=== PATIENT | female | born 1940 | race Caucasian/White ===

== ENCOUNTER 2019-09-14 21:05 | Outpatient (CLI) | payer MEDICARE | END 2019-09-14 21:06 | disposition critical access hospital (66) | LOC: EMS 21:05 | PROVIDERS: ATTEND Surgery | DX: R55 Syncope and collapse (principal); R47.81 Slurred speech; R29.810 Facial weakness | CPT/HCPCS: A0425; A0429 ==

== ENCOUNTER 2019-09-14 21:22 | Inpatient (IN) | payer MEDICARE ==
--- NOTE | 2019-09-14 21:24 | ED Physician Documentation ---
PD HPI FOCAL NEURO - Stated complaint Stated Complaint: STROKE - History obtained from History obtained from: EMS - History of Present Illness Timing - onset: How many minutes ago (approximately 30 minutes NUCLEAR MEDICINE PET CT TECHNOLOGIST) Timing - details: Abrupt onset Severity of deficit: Severe Weakness: Face Associated symptoms: Headache Baseline status: positive: Cane Similar symptoms before: Has not had sx before Recently seen: Not recently seen - Additional information Additional information: last known normal was 6:30 PM tonight. Approximately 30 minutes NUC[address]AR MED[address]INE PET [address] TECHNOLOGIST, patient called out to son for help while she was on the toilet. She told her son she felt she was going to pass out. Son noted left facial droop, slurred speech, and patient c/o headache. Patient's baseline is AAOx3, ambulatory with cane. She became increasingly drowsy en route to ED and arrives unconscious, not responsive to stimuli including painful stimuli. Per medic report, patient's medications are lisinopril, lasix, and metoprolol. 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) - Allergies Allergies/Adverse Reactions: Allergies Allergy/AdvReac Type Severity Reaction Status Date / Time No Known Drug Allergies Allergy Verified 09/15/19 01:12 - Living Situation Living Situation: reports: With family Living Arrangement: reports: At home PD ED PE NORMAL - Vitals Vital signs reviewed: Yes - General General: Well developed/nourished - HEENT HEENT: Atraumatic, Moist mucous membranes - Cardiac Cardiac: No murmur - Respiratory Respiratory: No respiratory distress, Other (bilateral course breath sounds) - Abdomen Abdomen: Soft, Non distended - Derm Derm: Normal color - Neuro Eye Opening: None Motor: None Verbal: None GCS Score: 3 PD ED PE EXPANDED - General General: Unresponsive - Cardiac Cardiac: Irregularly irregular - Neuro Neuro: Unresponsive, Dyscongugate gaze (no purposeful gaze; medial deviation of left eye) Results - Vitals Vitals: Vital Signs - 24 hr 09/14/19 09/14/19 09/14/19 21:54 22:00 22:02 Temperature 36.6 C Heart Rate 81 120 H 116 H Respiratory 16 20 18 Rate Blood Pressure 169/114 H 230/133 H 212/142 H O2 Saturation 98 20 L 100 09/14/19 09/14/19 09/14/19 22:12 22:15 22:20 Temperature Heart Rate 87 83 82 Respiratory 16 16 Rate Blood Pressure 235/104 H O2 Saturation 100 100 09/14/19 09/14/19 09/14/19 22:26 22:34 22:37 Temperature Heart Rate 75 73 66 Respiratory 18 16 16 Rate Blood Pressure 115/77 102/62 87/59 L O2 Saturation 10 L 100 100 09/14/19 09/14/19 09/14/19 22:42 22:47 23:00 Temperature Heart Rate 76 68 90 Respiratory 16 Rate Blood Pressure 95/65 95/62 O2 Saturation 100 09/15/19 09/15/19 00:32 01:53 Temperature Heart Rate 71 86 Respiratory 16 11 L Rate Blood Pressure 178/84 H 110/62 O2 Saturation 100 93 Oxygen O2 Source Room air - EKG (time done) No standard instances Rate: Rate (enter#) (102) Rhythm: Atrial fibrillation [place]: Normal Ischemia: Normal ST segments - Labs Labs: Laboratory Tests 09/14/19 09/14/19 09/14/19 21:52 21:52 21:52 WBC 16.3 H RBC 3.93 L Hgb 12.0 Hct 36.9 L MCV 93.9 MCH 30.5 MCHC 32.5 RDW 13.5 Plt Count 238 MPV 11.0 H Neut # (Auto) 10.8 H Lymph # (Auto) 4.3 H [place] # (Auto) 0.9 Eos # (Auto) 0.1 Baso # (Auto) 0.1 Absolute Nucleated RBC 0.00 Nucleated RBC % 0.0 PT 35.1 H INR 3.3 H APTT 33.5 H Sodium 133 L Potassium 3.1 L Chloride 101 Carbon Dioxide 23 Anion Gap 9.0 BUN 12 Creatinine 0.9 Estimated GFR (MDRD) 60 L Glucose 230 H Calcium 8.4 L Total Bilirubin 0.6 AST 19 ALT 10 Alkaline Phosphatase 76 Troponin I High Sens Total Protein 6.1 L Albumin 2.8 L Globulin 3.3 Albumin/Globulin Ratio 0.8 L Lipase 30 TSH Urine Color Urine Clarity Urine pH Ur Specific [place] Urine Protein Urine Glucose (UA) Urine Ketones Urine Occult Blood Urine Nitrite Urine Bilirubin Urine Urobilinogen Ur Leukocyte Esterase Ur Microscopic Review Urine Culture Comments 09/14/19 09/14/19 09/14/19 21:52 21:52 22:25 WBC RBC Hgb Hct MCV MCH MCHC RDW Plt Count MPV Neut # (Auto) Lymph # (Auto) [place] # (Auto) Eos # (Auto) Baso # (Auto) Absolute Nucleated RBC Nucleated RBC % PT INR APTT Sodium Potassium Chloride Carbon Dioxide Anion Gap BUN Creatinine Estimated GFR (MDRD) Glucose Calcium Total Bilirubin AST ALT Alkaline Phosphatase Troponin I High Sens 7.1 Total Protein Albumin Globulin Albumin/Globulin Ratio Lipase TSH 2.16 Urine Color YELLOW Urine Clarity CLEAR Urine pH 6.0 Ur Specific [place] 1.010 Urine Protein NEGATIVE Urine Glucose (UA) 100 H Urine Ketones NEGATIVE Urine Occult Blood NEGATIVE Urine Nitrite NEGATIVE Urine Bilirubin NEGATIVE Urine Urobilinogen 0.2 (NORMAL) Ur Leukocyte Esterase NEGATIVE Ur Microscopic Review NOT INDICATED Urine Culture Comments NOT INDICATED - Rads (name of study) CT head w/wo Radiology: Prelim report reviewed, See rad report CT neck w/wo Radiology: Prelim report reviewed, See rad report Procedures - Intubation Provider: Emergency physician Medications: Etomidate, Rocuronium Blade: Glidescope Tube: Size-enter number (8.0), Cuffed Route: Oral Confirmation: Direct visualization, Bilateral breath sounds, No abdominal breath sound, End tidal CO2, Pulse ox, Chest xray Complications: Right mainstem (right mainstem on CXR; respiratory therapist subsequently pulled ETT back 2 cm) PD MEDICAL DECISION MAKING - ED course Complexity details: reviewed results, re-evaluated patient, considered differential, d/w family ED course: while patient was on CT table, I reviewed the images of the CTH w/o and noted ICH. I spoke with the radiologist traveling construction superintendent to ascertain whether to proceed with CT with contrast, as well as the neck CT w/wo, and he recommends getting these tests, as they may provide further information relevant to her immediate/emergent care. Upon returning from CT, patient's breathing was slowing with brief periods of apnea. She had gurgling respirations and did not appear to be protecting her airway and was thus intubated. I then d/w Dr. Getachew Rodriguez (on-call neurology at [facility]), he recommends I contact neurosurgery. I then d/w Dr. Duran (on-call neurosurgery at [facility]). He says that based on the location and extent of the bleeding, surgery would not be indicated and he recommends comfort care for this patient. There was significant delay in getting the images pushed to [facility], and I had these discussions before they were able to see the images. However, Dr. Duran subsequently called back to me once he was able to see the images and he again said patient would not be appropriate for surgery, recommends comfort care. During these conversations, I was given a note by ED staff that patient's daughter had called requesting update and provided a phone number. I called this number and received voicemail. I left a message requesting call back to me. After another 30 minutes, I called again; the person who answered said this was a wrong number. RN then called other number listed in patient's chart for contact and was able to get me in touch with the daughter. I updated her and she subsequently came to ED. I explained the diagnostic test results and the grave prognosis. In conjunction with Dr. Argueta ([facility] hospitalist), the plan is to give morphine and ativan and then extubate. This was undertaken. Patient continued to breathe on her own and had stable vital signs. However, she had no purposeful movements during entire ED stay, and post-extubation continued to have no blink/corneal reflexes, no gag reflex, no response to painful stimuli. She did exhibit brief, random movements of her legs. She also had negative oculocephalic reflex. She was then admitted to hospitalist service for ongoing comfort measures - Critical Care Time(min): 70 Time Includes: Direct patient care, Review records, Reassess patient, Document care, Coordinate care, Medical consult, Family consult for tx dec, See progress note Data interpretation: Labs, Pulse ox, CXR, See progress note Procedures included in critical care time: Ventilator mgmt, See progress note Procedures excluded from critical care time: Intubation, See progress note Departure - Departure Disposition: 66 [facility] DC/Xfer Clinical Impression: Intracranial hemorrhage Condition: Critical Discharge Date/Time: 09/15/19 02:44
[2019-09-14] MEDS ORDERED: IOVERSOL 320 100 ML VIAL IVP ONE ×2 (21:30→21:50)
[2019-09-14] MEDS: ETOMIDATE 40 MG/20 ML VIAL IVP STA (21:50)
[2019-09-14] MEDS ORDERED: ETOMIDATE 40 MG/20 ML VIAL IVP ONE (21:55)
[2019-09-14] MEDS ORDERED: MIDAZOLAM 2 MG/2 ML VIAL ONE (21:55)
[2019-09-14] MEDS ORDERED: KETAMINE 500 MG/10 ML VIAL ONE (21:55)
[2019-09-14] MEDS ORDERED: PROPOFOL 1000 MG/100 ML 100 ML IV ONE (21:55)
[2019-09-14] MEDS ORDERED: PROPOFOL 200 MG/20 ML VIAL IVP ONE (21:56)
[2019-09-14] MEDS ORDERED: SUCCINYLCHOLINE 200 MG/10 ML VIAL ONE (21:56)
[2019-09-14] MEDS ORDERED: ROCURONIUM 50 MG/5 ML VIAL IVP ONE (21:56)
[2019-09-14 21:58] LABS: BASOPHILS # (AUTO) 0.1 10^3/uL (0.0-0.1); BASOPHILS % (AUTO) 0.5 %; EOSINOPHILS # (AUTO) 0.1 10^3/uL (0.0-0.7); EOSINOPHILS % (AUTO) 0.9 %; LYMPHOCYTES # (AUTO) 4.3 10^3/uL (1.5-3.5); LYMPHOCYTES % (AUTO) 26.1 %; MEAN CORPUSCULAR HEMOGLOBIN 30.5 pg (27.0-31.0); MEAN CORPUSCULAR HGB CONC 32.5 g/dL (32.0-36.0); MEAN CORPUSCULAR VOLUME 93.9 fL (81.0-99.0); MONOCYTES # (AUTO) 0.9 10^3/uL (0.0-1.0); MONOCYTES % (AUTO) 5.4 %; NEUTROPHILS # (AUTO) 10.8 10^3/uL (1.5-6.6); NEUTROPHILS % (AUTO) 65.9 %; PLT - PLATELET COUNT 238 10^3/uL (130-450); RED BLOOD COUNT 3.93 10^6/uL (4.20-5.40); RED CELL DISTRIBUTION WIDTH 13.5 % (12.0-15.0); WHITE BLOOD COUNT 16.3 x10^3/uL (4.8-10.8)
[2019-09-14] MEDS ORDERED: ETOMIDATE 40 MG/20 ML VIAL IVP STA ×2 (22:00→22:20)
[2019-09-14] MEDS ORDERED: ROCURONIUM 50 MG/5 ML VIAL IVP STA (22:00)
[2019-09-14] MEDS ORDERED: NICARDIPINE HCL 25 MG in SODIUM CHLORIDE 0.9% 240 ML IV STA (22:03)
[2019-09-14 22:04] LABS: INR 3.3 (0.8-1.2); PT - PROTHROMBIN TIME 35.1 secs (9.9-12.6)
[2019-09-14 22:11] LABS: ALBUMIN 2.8 g/dL (3.2-5.5); ALBUMIN/GLOBULIN RATIO 0.8 (1.0-2.2); BILIRUBIN,TOTAL 0.6 mg/dL (0.2-1.0); CALCIUM 8.4 mg/dL (8.5-10.3); CREATININE 0.9 mg/dL (0.4-1.0); PARTIAL THROMBOPLASTIN TIME 33.5 secs (24.9-33.3); TOTAL PROTEIN 6.1 g/dL (6.7-8.2)
--- NOTE | 2019-09-14 22:20 | CT Report ---
Reason: AMS Procedure Date: 09/14/2019 Accession Number: [id number] / [id number] Procedure: CT - HEAD WO CPT Code: Final Report FULL RESULT: EXAM: CT HEAD EXAM DATE: 09/14/2019 09:25 PM. CLINICAL HISTORY: Clinical history not provided. COMPARISON: 07/21/2019 9:01 AM. TECHNIQUE: Multiaxial CT images were obtained from the foramen magnum to the vertex. Reformats: Sagittal and coronal. IV contrast: None. In accordance with CT protocol optimization, one or more of the following dose reduction techniques were utilized for this exam: automated exposure control, adjustment of mA and/or KV based on patient size, or use of iterative reconstructive technique. FINDINGS: Parenchyma/extra-axial spaces: An acute intraparenchymal bleed present centered in the left mid to upper cerebellar hemisphere measuring approximately 3.7 x 3.7 x 2.8 cm in diameter and extending partially into the right hemisphere. Surrounding edema present diffusely. Hemorrhage tracks into the surrounding subarachnoid spaces in the right greater than left cerebellum. There is also increased density about the tentorium diffusely suggesting subdural extension. The hematoma also appears to rupture into the fourth ventricle, filling the basal cisterns around the medulla and brittany and tracking up through the cerebral aqueduct into the third ventricle. No visible intraventricular blood present at this time. Cerebellar parenchyma surrounding the hematoma appears diffusely hypodense. The medulla and inferior portion of the brittany also demonstrates hypodensity suggesting cerebral edema. Moderate periventricular white matter disease present diffusely. Sinuses and Orbits: Imaged paranasal sinuses, orbits, and mastoids show no significant abnormality. Bones: No evidence of fracture or calvarial defect. Other: None. IMPRESSION: 3.7 cm left cerebellar intraparenchymal hematoma crossing the midline into the right hemisphere and rupturing into the basal cisterns filling the third and fourth ventricles. Scattered posterior fossa subarachnoid and tentorial subdural blood also noted. Parenchymal edema noted within the medulla, inferior brittany and in the surrounding cerebellar tissues, worrisome for infarction. This may represent a hemorrhagic infarct versus hemorrhagic mass or vascular malformation. RADIA The above critical result findings were discussed with Breen by Dr. Carlos Leon at 10:03 PM on 09/14/2019.
[2019-09-14 22:42] LABS: BILIRUBIN,URINE NEGATIVE (NEGATIVE); GLUCOSE, URINE (UA) 100 mg/dL (NEGATIVE); KETONES,URINE (UA) NEGATIVE (NEGATIVE); LEUKOCYTE ESTERASE, URINE NEGATIVE (NEGATIVE); NITRITE,URINE NEGATIVE (NEGATIVE); OCCULT BLOOD,URINE NEGATIVE (NEGATIVE); PROTEIN,URINE NEGATIVE (NEGATIVE); UROBILINOGEN,URINE 0.2 (NORMAL) E.U./dL (NORMAL)
[2019-09-14 22:44] LABS: CLARITY,URINE CLEAR (CLEAR)
--- NOTE | 2019-09-14 22:59 | XRAY Report ---
Reason: chest pain Procedure Date: 09/14/2019 Accession Number: [id number] / [id number] Procedure: XR - Chest 1 View X-Ray CPT Code: 83662 Final Report FULL RESULT: EXAM: CHEST RADIOGRAPHY EXAM DATE: 09/14/2019 10:27 PM. CLINICAL HISTORY: Chest pain. COMPARISON: None. TECHNIQUE: 1 view. FINDINGS: Lungs/Pleura: Atelectasis or consolidation at the left base. Possible small left pleural effusion. No pneumothorax. Mediastinum: Rotated. Within exam limitations, the cardiomediastinal contour is normal. Aortic atherosclerosis. Other: Endotracheal tube tip in the right mainstem bronchus, 1.6 cm beyond the neri. Enteric tube tip in the distal esophagus. IMPRESSION: 1. ETT in the right mainstem bronchus, 1.6 cm beyond the neri. 2. Atelectasis or consolidation at the left base with possible small left pleural effusion. 3. Enteric tube tip in the distal esophagus. RADIA The critical result notification system was initiated by Dr. Roni Odom at 10:55 PM on 09/14/2019. The above critical result findings were discussed with Medardo Breen by Dr. Roni Odom at 10:57 PM on 09/14/2019.
--- NOTE | 2019-09-14 23:09 | CT Report ---
Reason: L sided facial droop, L neck pain Procedure Date: 09/14/2019 Accession Number: [id number] / [id number] Procedure: CT - ANGIO NECK W CPT Code: Final Report FULL RESULT: EXAM: CT ANGIOGRAM HEAD AND NECK. CT SCAN HEAD WITH CONTRAST. EXAM DATE: 09/14/2019 09:51 PM. CLINICAL HISTORY: L sided facial droop, L neck pain. Intracranial hemorrhage. COMPARISON: CT head without contrast 09/14/2019, 21:25. TECHNIQUE: Routine axial helical CTA imaging was performed from the aortic arch through the [place] of [place]. Routine axial CT imaging of the head was performed following contrast administration. Reconstructions: Routine multiplanar 3D MIP reconstructions. IV contrast: OPTIRAY 320. NASCET Criteria are used for stenosis measurements. In accordance with CT protocol optimization, one or more of the following dose reduction techniques were utilized for this exam: automated exposure control, adjustment of mA and/or KV based on patient size, or use of iterative reconstructive technique. FINDINGS: CT SCAN HEAD with IV contrast: Precontrast imaging of the brain has been previously reported. Acute parenchymal hemorrhage centered in the cerebellar vermis extending into both cerebellar hemispheres is again demonstrated and appears stable compared to the earlier precontrast CT. The primary region of hemorrhage measures approximately 3.9 x 4.2 x 3.2 cm (AP by TR by CC) Extension of hemorrhage into the adjacent posterior fossa subarachnoid spaces is also unchanged. There is intraventricular extension of hemorrhage predominantly involving the fourth ventricle and third ventricle. Small volume of IVH is also noted in both occipital horns. This is also unchanged. Compression of the fourth ventricle is unchanged. Ventricular size is stable. No definite hydrocephalus. Postcontrast imaging demonstrates a linear serpiginous focus of contrast enhancement within the hematoma centered in the cerebellar vermis to the left of midline. Please refer to CTA report below. Postcontrast imaging is otherwise unremarkable. CT ANGIOGRAM EXTRACRANIAL CIRCULATION: The visualized arch is unremarkable. Great vessels are patent without evidence of stenosis. Right Carotid: The common carotid, internal carotid, and external carotid arteries are widely patent. There is minimal calcified plaque at the bifurcation. No evidence of stenosis or dissection. Left Carotid: The common carotid, internal carotid, and external carotid arteries are widely patent. There is mild calcified plaque at the bifurcation. No evidence of stenosis or dissection. Vertebrals: The left vertebral artery is the dominant vertebral artery and main contributor to the basilar artery prior there was no evidence of left vertebral artery stenosis or dissection. The right vertebral artery is congenitally hypoplastic. The distal V2 segment of the right vertebral artery appears occluded at the C3 level but reconstitutes at the C2 level and continues to join the basilar artery. I suspect that this occlusion is chronic in nature. CT ANGIOGRAM INTRACRANIAL CIRCULATION: There is no evidence of large vessel occlusion. There is mild atherosclerotic calcification in the carotid siphons bilaterally but no significant stenosis. In addition, there is mild irregularity involving the proximal MCAs bilaterally, proximal marketing regional consultant bilaterally, and the V4 segment of the right vertebral artery suggesting intracranial atherosclerotic disease. There is no evidence of significant or high-grade stenosis. A linear serpiginous focus of enhancement within the hematoma in the region of the cerebellar vermis is noted. There appears to be a small 2-3 mm dilatation associated with this linear focus of enhancement (image 108, series 11). This is of uncertain significance. Although this linear structure does not clearly connect with the PICA, a small distal PICA aneurysm cannot be completely excluded. This focus of enhancement may also represent an angiographic dot sign Related to contrast extravasation. The dural venous sinuses are patent. Other: There is a nonspecific 2.5 cm nodule in the left thyroid lobe. A small subcentimeter nonspecific nodule is noted in the right thyroid lobe. Neck soft tissues are otherwise unremarkable. Patchy infiltrate or atelectasis is partially visualized in the posterior aspect of the left upper lung. There is moderate degenerative change in the lower cervical spine. IMPRESSION: CT SCAN HEAD with IV contrast: 1. Acute parenchymal hemorrhage centered in the cerebellar vermis with extension into the subarachnoid space and intraventricular extension is stable compared to the earlier noncontrast head CT. 2. Stable compression of the fourth ventricle. Stable ventricular size. No definite hydrocephalus. 3. Linear focus of contrast enhancement is noted within the cerebellar hematoma to the left midline. Please see CTA report below. CT ANGIOGRAM NECK: 1. No evidence of carotid artery stenosis or dissection. 2. The left vertebral artery is dominant and the main contributor to the basilar artery. The dominant left vertebral artery demonstrates no evidence of stenosis or dissection. 3. Right vertebral artery is congenitally hypoplastic but patent to the distal V2 segment where there is focal occlusion at the C3 level. The hypoplastic right vertebral artery reconstitutes at the C2 level and continues to join the basilar. I suspect that this distal V2 occlusion is chronic in nature. CT ANGIOGRAM HEAD: 1. There is a linear focus of contrast enhancement within the hematoma involving the cerebellar vermis to the left midline. There is a 2-3 mm focal dilatation associated with this linear focus of enhancement. This is of unclear etiology. This may represent a venous structure or angiographic "dot sign" related to contrast leakage. Although this linear structure does not clearly connect with the left PICA, a small distal PICA aneurysm cannot be completely excluded. If clinically indicated, this could be further assessed with a catheter angiogram. 2. No evidence of aneurysm elsewhere in the intracranial circulation. 3. No evidence of large vessel occlusion or significant stenosis. 4. Dural venous sinuses are patent. RADIA The call report notification system was initiated by Dr. Norris Johnson at 10:56 PM on 09/14/2019. The above call report findings were discussed with Medardo Breen by Dr. Norris Johnson at 11:06 PM on 09/14/2019.
[2019-09-14] MEDS ORDERED: PROTHROMBIN COMPLEX CONC 500 UNIT VIAL IVP STA (23:16)
--- NOTE | 2019-09-15 00:03 | XRAY Report ---
Reason: tube placement Procedure Date: 09/14/2019 Accession Number: [id number] / [id number] Procedure: XR - Chest 1 View X-Ray CPT Code: 22575 Final Report FULL RESULT: EXAM: CHEST RADIOGRAPHY EXAM DATE: 09/14/2019 11:51 PM. CLINICAL HISTORY: Tube placement. COMPARISON: CHEST 1 VIEW 09/14/2019 10:05 PM. TECHNIQUE: 1 view. FINDINGS: Lungs/Pleura: Possible atelectasis or infiltrate at the left base. Small left pleural effusion. No pneumothorax. Mediastinum: Rotated. Within exam limitations, the heart size is normal. Aortic atherosclerosis. Hiatal hernia. Other: Endotracheal tube tip is 2.8 cm above the neri. Enteric tube looped in hiatal hernia. IMPRESSION: 1. ETT 2.8 cm above the neri. Enteric tube in a hiatal hernia. 2. Possible atelectasis or infiltrate at the left base with small left pleural effusion. RADIA
[2019-09-15] MEDS ORDERED: MORPHINE 2 MG/ML CARPUJECT IVP STA (00:26)
[2019-09-15] MEDS ORDERED: LORazepam 2 MG/ML VIAL IVP STA (00:26)
[2019-09-15] MEDS: ETOMIDATE 40 MG/20 ML VIAL IVP STA (01:10)
[2019-09-15] MEDS ORDERED: MORPHINE 2 MG/ML CARPUJECT IVP PRN (02:03)
[2019-09-15] MEDS ORDERED: ATROPINE 1% OPHTH DROPS 2 ML SL PRN (02:06)
[2019-09-15] MEDS ORDERED: LORazepam 2 MG/ML VIAL IVP PRN (02:06)
--- NOTE | 2019-09-15 02:17 | HISTORY & PHYSICAL EXAMINATION ---
Chief Complaint - Chief Complaint Chief Complaint: Weakness History of Present Illness - Admitted From Admitted From:: Home - History Obtained From Records Reviewed: Yes History obtained from: ER Physician, Daughter, EMR Exam Limitations: Patient is unresponsive - History of Present Illness HPI Comment/Other: This is a 79-year-old female with a past medical history significant for atrial fibrillation on Coumadin, prior history of CVA who presents today from home complaining of weakness. History is obtained from the ER physician and the patient's daughter the patient is unable to provide a history due to her neurologic condition. The patient reportedly called for her family today after she felt increasingly weak and was complaining of a headache. Family was concern for slurred speech and left-sided facial droop and so EMS was called given the concern for stroke. The patient's daughter states that the patient h as a history of stroke in the past and she is on Coumadin for age fibrillation. She has had recurrent TIAs over the past couple years. She stated the patient has been declining from a functional standpoint over the past few months. She is relatively sedentary and ambulates with a walker at baseline. She reports that her mother has not had any complaints over the past few weeks. She has been home quite a bit over the last couple of weeks to decrease her risk of becoming infected with the novel coronavirus. In the emergency department, she is found to be hypertensive with a blood pressure of 230/133. As that she was being assessed in the emergency department, she began to decline from neurologic standpoint with increasing still poor and agonal breathing. She was intubated for airway protection. She underwent a CT of the head which showed 3.7 cm left cerebellar hematoma crossing the midline to the right hemisphere and filling the third and fourth ventricles. The emergency room physician spoke with neurosurgery at [facility] who stated that the patient would not be a surgical candidate and they recommended comfort measures. This was discussed with the patient's daughter, Adriana who wanted to discuss with her other sister before making any medical decisions. The patient did receive K Centra given her INR is elevated at 3.3 I spoke with Adriana and her other sister, Catarina who was on the phone regarding goals of care. They both agreed that her mother would not want to suffer and she would not want to live in a vegetative state. They understand her critical condition and that surgical intervention is not recommended by neurosurgery. Both Adriana and Catarina decided to pursue comfort measures. Given the patient was already intubated, I discussed with them that we could give the patient morphine and lorazepam prior to palliative extubation. They were both agreeable to this. They wondered how long she would have to live as did not want her to suffer. I informed him that it is difficult to state at this moment and we would need to take it hour by hour. She was extubated in the emergency department and she will be admitted to the floor for comfort measures. History - Past Medical History Cardiovascular: reports: Atrial fibrillation Neuro: reports: CVA - Family & Social History Family History Comment/Other: This was not obtained given her critical condition and that comfort measures were pursued. Living arrangement: At home Living Situation: With family Social History Notes: This was not obtained given her critical condition and that comfort measures were pursued. Meds/Allgy - Home Medications Home Medications: Ambulatory Orders Medication Instructions Recorded Confirmed Furosemide 40 mg PO DAILY 09/15/19 09/15/19 Meloxicam [Mobic] 7.5 mg PO DAILY 09/15/19 09/15/19 Metoprolol Tartrate 75 mg PO BID 09/15/19 09/15/19 Pantoprazole [Protonix] 40 mg PO QDAC 09/15/19 09/15/19 Simvastatin [Zocor] 40 mg PO QPM 09/15/19 09/15/19 Warfarin [Coumadin] 1.25 mg PO WEFR 09/15/19 09/15/19 Warfarin [Coumadin] 2.5 mg PO SUMOTUTHSA 09/15/19 09/15/19 lisinopriL [Lisinopril] 30 mg PO DAILY 09/15/19 09/15/19 - Allergies Allergies/Adverse Reactions: Allergies Allergy/AdvReac Type Severity Reaction Status Date / Time No Known Drug Allergies Allergy Verified 09/15/19 01:12 Review of Systems - All Other Systems All Other Systems: reports: Other (Unable to obtain review of systems due to her being unresponsive.) Prior Level of Functionality: Daughter states that she has been declining from a physical standpoint over the past few months. She ambulates with a walker at baseline. Exam - Vital Signs Reviewed Vital Signs: Yes Vital Signs: Vital Signs x48h Temp Pulse Resp BP Pulse Ox 09/15/19 01:53 86 11 L 110/62 93 09/15/19 00:32 71 16 178/84 H 100 09/14/19 23:00 90 09/14/19 22:47 68 95/62 09/14/19 22:42 76 16 95/65 100 09/14/19 22:37 66 16 87/59 L 100 09/14/19 22:34 73 16 102/62 100 09/14/19 22:26 75 18 115/77 10 L 09/14/19 22:20 82 16 235/104 H 100 09/14/19 22:15 83 09/14/19 22:12 87 16 100 09/14/19 22:02 116 H 18 212/142 H 100 09/14/19 22:00 120 H 20 230/133 H 20 L 09/14/19 21:54 36.6 C 81 16 169/114 H 98 - Physical Exam General Appearance: positive: Mild distress, Other (She is unresponsive. Does not follow commands.) Eyes Bilateral: positive: Other (Pupils are constricted. There is no corneal reflex.) ENT: positive: ENT inspection nml Neck: positive: Nml inspection Respiratory: positive: No respiratory distress, Other (Breath sounds are diminished. Crackles noted bilaterally.). negative: Breath sounds nml Cardiovascular: positive: No murmur, Irregularly irregular. negative: Tachycardia, Bradycardia, Systolic murmur, Diastolic murmur Abdomen: positive: Non-tender, No distention. negative: Tenderness Skin: positive: Warm, Dry Extremities: positive: No pedal edema Neurologic/Psychiatric: positive: Other (She is unresponsive and unable to follow commands or respond to painful stimuli. She has occasional twitching of her lower extremities. She does not move her upper extremities. She has no cough or gag reflex. Pupils are constricted. No corneal reflex.). negative: Oriented x3, CN's nml (2-12), Motor nml Conclusion/Plan - Problem List (1) Acute cerebellar hemorrhage Conclusion/Plan: Unfortunately this is an 79-year-old female with a catastrophic cerebellar hemorrhage that neurosurgery feels is not a surgical candidate. She has significant hemorrhage with ventricular involvement. She has significant neurologic deficits. Neurosurgery recommended comfort measures which the family is agreeable to. We will admit her to the floor given she appears to be imminently dying and start her on morphine and lorazepam as needed. Will consult social work. (2) Chronic atrial fibrillation Conclusion/Plan: She is rate controlled. Given she is comfort measures only. We will not place her on telemetry. (3) custodial current use of anticoagulant Conclusion/Plan: She is on Coumadin for her atrial fibrillation history of prior strokes. Her INR is elevated at 3.3 and she received Kcentra. We will no longer trend her INR given she is comfort measures only. (4) Comfort measures only status Conclusion/Plan: After extensive discussion with the patient's daughters, Adriana and Catarina, a decision was made to pursue comfort measures given she is not a surgical candidate. Catarina will attempt to visit in the morning if her mother survives through the night. Adriana will be present at bedside. We will place her on morphine and lorazepam as needed. Will use atropine for secretions. She is DNR with comfort measures only. - Lab Results Lab results reviewed: Yes Fish Bones: 09/14/19 21:52 09/14/19 21:52 - Diagnostic Imaging Results Diagnostic Imaging Results: positive: Final report reviewed Core Measures - Anticipated LOS I expect patient to be DC'd or transferred within 96 hours.: Yes - Issues Hospital Issues and Management Plan: 79-year-old female with atrial relation on Coumadin who presents with an acute hemorrhagic CVA. She is not a candidate for intervention. Family has decided to pursue comfort measures given her poor prognosis and critical condition. - DVT/VTE - Prophylaxis VTE/DVT Device ordered at admit?: No Not Ordered - Medical Reason: Not indicated VTE/DVT Prophylaxis med ordered at admit?: No Not Ordered - Medical Reason: Not indicated - Stroke - Rehab Assessment Rehab services assessment to be ordered?: No
--- NOTE | 2019-09-15 10:33 | PHARMACY PROGRESS NOTE ---
- Best Possible Medication History Admit Date and Time: 09/15/19 0203 Processed by: Pharmacy Medication History completed: Yes Patient Interview: Pt unable to participate Secondary Source(s): Physician records, Pharmacy records, Insurance records As the person ultimately responsible for medication therapy, providers are able to order a medication from an existing home medication list in [facility] via the "Reconcile Routine" prior to Confirmation of that medication by ground support equipment assembler. Such practice is discouraged except when the physician, in their clinical judgment, deems that a medical need exists for a medication without regard to previous use.
[2019-09-15 18:29] VITALS: BP 151/104
--- NOTE | 2019-09-16 01:22 | Discharge Plan ---
Discharge Plan Problem Reviewed?: Yes Disposition: 20 No Smoking: If you smoke, Please STOP! Call for help. Follow-up with: Nakul Jaramillo MD [Primary Care Provider] -
--- NOTE | 2019-09-16 01:23 | DISCHARGE SUMMARY ---
Discharge Summary Discharge Disposition: 20 - ALLERGIES Allergies/Adverse Reactions: Allergies Allergy/AdvReac Type Severity Reaction Status Date / Time No Known Drug Allergies Allergy Verified 09/15/19 01:12 - MEDICATIONS Home Medications: Ambulatory Orders Medication Instructions Recorded Confirmed Furosemide 40 mg PO DAILY 09/15/19 09/15/19 Meloxicam [Mobic] 7.5 mg PO DAILY 09/15/19 09/15/19 Metoprolol Tartrate 75 mg PO BID 09/15/19 09/15/19 Pantoprazole [Protonix] 40 mg PO QDAC 09/15/19 09/15/19 Simvastatin [Zocor] 40 mg PO QPM 09/15/19 09/15/19 Warfarin [Coumadin] 1.25 mg PO WEFR 09/15/19 09/15/19 Warfarin [Coumadin] 2.5 mg PO SUMOTUTHSA 09/15/19 09/15/19 lisinopriL [Lisinopril] 30 mg PO DAILY 09/15/19 09/15/19 - LABS Result Diagrams: 09/14/19 21:52 09/14/19 21:52
--- NOTE | 2019-09-16 01:32 | DISCHARGE SUMMARY ---
Discharge Summary Admit Date: 09/15/19 Discharge Date: 09/16/19 Discharging Provider: Radu Argueta Primary Care Provider: Nakul Jaramillo Code Status: Do Not Attempt Resuscitation Discharge Disposition: 20 - DIAGNOSES Admission Diagnoses: Acute cerebellar hemorrhage Chronic atrial fibrillation Long-term use of anticoagulant Comfort measures only status Discharge Diagnoses with Status of Each Condition: Acute cerebellar hemorrhage Chronic atrial fibrillation Long-term use of anticoagulant Hypertension Comfort measures only status - HPI History of Present Illness: This is a 79-year-old female with a past medical history significant for atrial fibrillation on Coumadin, prior history of CVA who presents today from home complaining of weakness. History is obtained from the ER physician and the patient's daughter the patient is unable to provide a history due to her neurologic condition. The patient reportedly called for her family today after she felt increasingly weak and was complaining of a headache. Family was concern for slurred speech and left-sided facial droop and so EMS was called given the concern for stroke. The patient's daughter states that the patient has a history of stroke in the past and she is on Coumadin for age fibrillation. She has had recurrent TIAs over the past couple years. She stated the patient has been declining from a functional standpoint over the past few months. She is relatively sedentary and ambulates with a walker at baseline. She reports that her mother has not had any complaints over the past few weeks. She has been home quite a bit over the last couple of weeks to decrease her risk of becoming infected with the novel coronavirus. In the emergency department, she is found to be hypertensive with a blood pressure of 230/133. As that she was being assessed in the emergency department, she began to decline from neurologic standpoint with increasing still poor and agonal breathing. She was intubated for airway protection. She underwent a CT of the head which showed 3.7 cm left cerebellar hematoma crossing the midline to the right hemisphere and filling the third and fourth ventricles. The emergency room physician spoke with neurosurgery at [facility] who stated that the patient would not be a surgical candidate and they recommended comfort measures. This was discussed with the patient's daughter, Adriana who wanted to discuss with her other sister before making any medical decisions. The patient did receive K Centra given her INR is elevated at 3.3 I spoke with Adriana and her other sister, Catarina who was on the phone regarding goals of care. They both agreed that her mother would not want to suffer and she would not want to live in a vegetative state. They understand her critical condition and that surgical intervention is not recommended by neurosurgery. Both Adriana and Catarina decided to pursue comfort measures. Given the patient was already intubated, I discussed with them that we could give the patient morphine and lorazepam prior to palliative extubation. They were both agreeable to this. They wondered how long she would have to live as did not want her to suffer. I informed him that it is difficult to state at this moment and we would need to take it hour by hour. She was extubated in the emergency department and she will be admitted to the floor for comfort measures. - HOSPITAL COURSE Hospital Course: The patient was admitted to the floor for comfort measures given her acute cerebellar hemorrhagic stroke that was not amenable to surgical intervention. She was treated with morphine and lorazepam IV as needed. She remained comfortable throughout the hospitalization. The patient on September 15 at 00:55. Both of the patient's daughters, Catarina and Adriana were notified and their questions were answered. - ALLERGIES Allergies/Adverse Reactions: Allergies Allergy/AdvReac Type Severity Reaction Status Date / Time No Known Drug Allergies Allergy Verified 09/15/19 01:12 - MEDICATIONS Home Medications: Ambulatory Orders Medication Instructions Recorded Confirmed Furosemide 40 mg PO DAILY 09/15/19 09/15/19 Meloxicam [Mobic] 7.5 mg PO DAILY 09/15/19 09/15/19 Metoprolol Tartrate 75 mg PO BID 09/15/19 09/15/19 Pantoprazole [Protonix] 40 mg PO QDAC 09/15/19 09/15/19 Simvastatin [Zocor] 40 mg PO QPM 09/15/19 09/15/19 Warfarin [Coumadin] 1.25 mg PO WEFR 09/15/19 09/15/19 Warfarin [Coumadin] 2.5 mg PO SUMOTUTHSA 09/15/19 09/15/19 lisinopriL [Lisinopril] 30 mg PO DAILY 09/15/19 09/15/19 - PHYSICAL EXAM AT DISCHARGE Eyes Bilateral: positive: Other (Pupils fixed and dilated.) Respiratory: positive: Other (No spontaneous breath sounds.) Cardiovascular: positive: Other (No heart sounds present.) Peripheral Pulses: positive: 0 Skin: positive: Pallor - LABS Result Diagrams: 03/31/20 21:52 09/14/19 21:52
== END 2019-09-16 00:55 | disposition expired | DRG 813 ==
LOC: EDUNIT# → ED 21:22 → MS2 09-15 02:03
PROVIDERS: ADMIT Internal Medicine; ATTEND Nurse Practitioner Gerontology
DX: I62.9 Nontraumatic intracranial hemorrhage, unspecified (principal); D68.32 Hemorrhagic disorder due to extrinsic circulating anticoagulants; I61.4 Nontraumatic intracerebral hemorrhage in cerebellum; R40.20 Unspecified coma; I48.20 Chronic atrial fibrillation, unspecified; I10 Essential (primary) hypertension; R06.81 Apnea, not elsewhere classified; Z66 Do not resuscitate; Z51.5 Encounter for palliative care; Z74.09 Other reduced mobility; T45.515A Adverse effect of anticoagulants, initial encounter; Y92.009 Unspecified place in unspecified non-institutional (private) residence as the place of occurrence of the external cause; Z79.01 Long term (current) use of anticoagulants; Z86.73 Personal history of transient ischemic attack (TIA), and cerebral infarction without residual deficits
CPT/HCPCS: 31500; 36415; 70496; 70498; 71045; 80053; 81003; 83690; 84443; 84484; 85025; 85610; 85730; 93005; 94002; 96365; 96375; 99291; C9132; J2060; Q9967; 70450; 81001; 87086